=== PATIENT | female | born 1935 | race Caucasian/White ===

== ENCOUNTER → 2018-02-05 09:59 | Outpatient (CLI) | payer MEDICARE, SELFPAY ==
--- NOTE | 2018-02-05 10:05 | BI_ITS ---
MAMMOGRAPHY - BILATERAL SCREENING REASON FOR EXAM: Female, 82 years old. Routine annual screening examination. PERTINENT HISTORY: Non-contributory. Remote left excisional breast biopsy. TECHNIQUE: Digital bilateral breast josé miguel (3D mammographic acquisition) in the CC and MLO projections. 2-D mediolateral oblique (MLO) and craniocaudad (CC) views of both breasts were obtained. CAD: Full Field Digital Mammography with Computer Added Detection was performed. COMPARISON: Comparison is made with prior study dated November 12, 2016 and November 06, 2015. FINDINGS: Breast Composition: There are scattered areas of fibroglandular density. There are no dominant masses or suspicious calcifications. No other significant abnormalities are identified. There has been no significant change since the prior study. BI/SCREENING MAMM (CAD), BILAT IMPRESSION: Stable bilateral screening mammogram. Yearly follow-up mammogram recommended. (A) ASSESSMENT CATEGORY: BIRADS Category 1: Negative. A letter regarding these results will be sent to the patient by the facility within 30 days. Approximately 10% of breast cancers are not detected by mammography. A normal mammogram should not delay biopsy of a clinically suspicious abnormality. [id number] Electronically Signed: Az Izaguirre MD at 9:35 EST Tel [phone], Service support ,
--- OUTSIDE RECORDS SUMMARY | 2018-04-01 19:41 | XMS RPT_ITS ---
:1935 Author Organization [facility] Care Team Providers Name Role Phone Star Pressley Attending Unavailable Star Pressley Referring Unavailable Star Pressley Primary Care Unavailable Star Pressley Attending Unavailable Star Pressley Attending Unavailable PROBLEMS PROBLEMS DATE TYPE CONDITION / ATTENDING STATUS SOURCE CODE 05/06/2017 Admitting Unknown / Star Pressley Active [facility] UNK(Unknown) [facility] Repository PROCEDURES PROCEDURES No Procedure Records FoundRESULTS RESULTS SCREENING MAMM (CAD), Observed: 02/05/2018 Status: F Source: [facility] BILAT 10:05 AM [facility] REPOSITORY [facility] Imaging Services [address] [place] [address] SCREENING MAMM (CAD), BILAT MR#: [id number] Acct: [id number] Name: BRITTANY MIDDLETON Rep #: [id number] : 1935 F 82 From: Az Izaguirre MD PCP: Star Pressley MD Status: REG CLI Study: SCREENING MAMM (CAD), BILAT Date of Exam: 02/05/18 Exam# [id number] Ordering Dr: tSar Pressley MD MAMMOGRAPHY - BILATERAL SCREENING REASON FOR EXAM: Female, 82 years old. Routine annual screening examination. PERTINENT HISTORY: Non-contributory. Remote left excisional breast biopsy. TECHNIQUE: Digital bilateral breast josé miguel (3D mammographic acquisition) in the CC and MLO projections. 2-D mediolateral oblique (MLO) and craniocaudad (CC) views of both breasts were obtained. CAD: Full Field Digital Mammography with Computer Added Detection was performed. COMPARISON: Comparison is made with prior study dated November 12, 2016 and November 06, 2015. FINDINGS: Breast Composition: There are scattered areas of fibroglandular density. There are no dominant masses or suspicious calcifications. No other significant abnormalities are identified. There has been no significant change since the prior study. BI/SCREENING MAMM (CAD), BILAT IMPRESSION: Stable bilateral screening mammogram. Yearly follow-up mammogram recommended. (A) ASSESSMENT CATEGORY: BIRADS Category 1: Negative. A letter regarding these results will be sent to the patient by the facility within 30 days. Approximately 10% of breast cancers are not detected by mammography. A normal mammogram should not delay biopsy of a clinically suspicious abnormality. [id number] Electronically Signed: Az Izaguirre MD at 9:35 EST Tel [phone], Service support , CC: Star Pressley MD Automatic Pattern Edger: Signed CBC W/DIFF Collected: 11/09/2017 Status: F Source: [facility] 9:45 AM [facility] REPOSITORY TYPE CODE TESTS RESULT OUT OF RANGE REFERENCE UNITS LAB L200.47968 4.5-11.0 K/CU MM WBC Normal 6.0 LAB L200.36483 3.90-5.30 M/CU MM RBC Normal 4.96 LAB L200.22499 11.5-15.5 G/DL HGB Normal 14.6 LAB L200.49207 35.0-47.0 % HCT Normal 44.3 LAB L200.00073 80.0-99.0 fl MCV Normal 89.3 LAB L200.17704 32.0-36.0 GM/DL MCHC Normal 33.0 LAB L200.90001 11-14.5 RDW Normal 13.7 LAB L200.41052 9.4-12.4 MPV Normal 10.5 LAB L200.13477 150-450 K/CU MM PLT Normal 176 LAB L200.15395 45-75 % NEUTROPHILS Normal % 53.3 LAB L200.50344 Less than 2 % IMMATURE Normal GRAN % 0.2 LAB L200.51783 20-40 % LYMPH % Normal 34.6 LAB L200.26566 2-10 % MONOCYTE % Normal 8.9 LAB L200.48372 0-5 % EOSINOPHIL Normal % 2.5 LAB L200.41402 0-2 % BASOPHIL % Normal 0.5 LAB L200.97393 2.0-8.3 K/CU MM NEUTROPHIL Normal ABS 3.20 LAB L200.19591 Less than 2 K/CU MM IMMATR GRAN Normal ABS 0.00 LAB L200.51518 0.9-4.4 K/CU MM LYMPH ABS Normal 2.10 LAB L200.37050 0.1-1.1 K/CU MM MONO ABS Normal 0.50 LAB L200.22289 0-0.5 K/CU MM EOS ABS Normal 0.20 LAB L200.97443 0-0.2 K/CU MM BASO ABS Normal 0.00 LAB L200.59622 Less than 1 % NRBC Normal 0.0 Performed By: #### L200.15430 #### [facility] [address]# [phone] [facility] Collected: 11/09/2017 Status: F Source: [facility] 9:45 AM [facility] REPOSITORY TYPE CODE TESTS RESULT OUT OF RANGE REFERENCE UNITS LAB L500.84094 136-145 MMOL/L Normal NA 141 LAB L500.46380 3.5-5.1 MMOL/L Normal K 4.3 LAB L500.95725 98-107 MMOL/L Normal CL 104 LAB L500.52184 21-32 MMOL/L Normal CO2 27 LAB L500.07972 5-16 MMOL/L Normal AGAP 10 LAB L500.88919 70-100 MG/DL Normal GLU 90 Result Comment: 70-100- Normal Fasting; 100-125 Impaired Fasting; greater than 126 on more than one result- Diabetes. ADA guidelines. Results may be falsely elevated after the administration of Sulfapyridine. Results may be falsely depressed after the administration of Sulfasalazine. LAB L500.27769 7-26 MG/DL Normal BUN 16 LAB L500.68366 0.510-0.950 MG/DL Normal CREAT 0.692 Result Comment: Patients receiving either N-Acetylcysteine (NAC) or Metamizole prior to venipuncture, may have falsely depressed results. LAB L500.43245 15-24 Normal BUN/CREA 23 LAB L500.46228 6.0-8.5 GM/DL Normal TP 7.2 LAB L500.64782 3.2-5.0 GM/DL Normal ALBUMIN 3.8 LAB L500.43006 2.2-4.2 GM/DL Normal GLOBULIN 3.4 LAB L500.85753 0.8-2.0 Normal A/G RATIO 1.1 LAB L500.26961 8.5-10.1 MG/DL Normal CALCIUM TOTAL 9.4 LAB L500.50439 0.2-1.0 MG/DL Normal BILI TOTAL 0.8 LAB L500.69042 8-34 U/L Normal SGOT (AST) 21 Result Comment: RESULTS MAY BE FALSELY DEPRESSED AFTER THE ADMINISTRATION OF SULFASALAZINE AND/OR SULFAPYRIDINE. LAB L500.14463 13-61 IU/L Normal SGPT (ALT) 19 Result Comment: RESULTS MAY BE FALSELY DEPRESSED AFTER THE ADMINISTRATION OF SULFASALAZINE AND/OR SULFAPYRIDINE. LAB L500.75377 45-117 U/L Normal ALK PHOS 64 Performed By: #### L500.03998, L500.16220, L500.54800 #### [facility] [address] [place] [address] GFR EST Collected: 11/09/2017 Status: F Source: [facility] 9:45 AM [facility] REPOSITORY TYPE CODE TESTS RESULT OUT OF RANGE REFERENCE UNITS LAB L500.39860 ML/MIN Normal IF non-AFR Greater than AMER 60 LAB L500.66315 ML/MIN Normal IF Greater than AMER 60 Performed By: #### L500.55100, L500.68330, L500.00910 #### [facility] [address] [place], [place] [id number] LIPID Collected: 11/09/2017 Status: F Source: [facility] 9:45 AM [facility] REPOSITORY TYPE CODE TESTS RESULT OUT OF RANGE REFERENCE UNITS LAB L500.09231 30-149 MG/DL Normal TRIG 143 Result Comment: Patients receiving either N-Acetylcysteine (NAC) or Metamizole prior to venipuncture, may have falsely depressed results. LAB L500.22851 0-199 MG/DL High CHOL 279 LAB L500.66479 GREATER [place] 40 MG/DL Normal HDL DIRECT 47 Result Comment: Patients receiving Metamizole prior to venipuncture, may have falsely depressed results. LAB L500.40717 0-129 MG/DL High LDL 204 Result Comment: ___CHOLESTEROL/HDL RATIO RISK___ CHD RISK = Total CHOL LDL HDL (CHOL/HDL) Recommended <200 <130 >35 <3.4 Borderline 200-239 130-159 3.4-4.99 High >240 >160 >5.0 Performed By: #### L500.44446, L500.53247, L500.90711 #### [facility] [place] [address] UA COMPLETE Collected: 11/09/2017 Status: F Source: [facility] 9:45 AM [facility] REPOSITORY TYPE CODE TESTS RESULT OUT OF REFERENCE UNITS RANGE LAB L600.81819 UA COLOR Normal Yellow LAB L600.67721 CLEAR UA Normal APPEARANCE Clear LAB L600.58265 1.005-1.030 UA SPEC Normal GRAV 1.014 LAB L600.32204 UA PH Normal 5.0 LAB L600.38456 UA GLUCOSE Normal NEG LAB L600.98964 UA KETONE Normal NEGATIVE LAB L600.65319 UA Normal BILIRUBIN NEGATIVE LAB L600.30894 UA Normal UROBILINOGEN NEG LAB L600.61717 NEGATIVE UA PROTEIN Normal NEGATIVE LAB L600.20498 NEGATIVE UA BLOOD Normal SMALL LAB L600.43352 NEGATIVE UA NITRITE Normal NEGATIVE LAB L600.87109 NEGATIVE UA LK Normal ESTERASE 25 LAB L600.40909 0-5 WBC/HPF UA WBC High 9 LAB L600.87748 0-3 RBC/HPF UA RBC Normal 3 LAB L600.73468 0-5 EPI/HPF SQUAMOUS Normal EPIS 1 LAB L600.22516 NONE /HPF UA BACTERIA Normal TRACE LAB L600.17532 MUCUS Normal TRACE LAB L600.28742 HPF WBC CLUMPS Normal RARE Performed By: #### L600.46563 #### [facility] [address] [place] [address] LIVER Collected: 05/06/2017 Status: F Source: [facility] 9:45 AM [facility] TYPE CODE TESTS RESULT OUT OF RANGE REFERENCE UNITS LAB L500.92467 6.0-8.5 GM/DL TP Normal 7.3 LAB L500.60033 3.2-5.0 GM/DL Normal ALBUMIN 3.8 LAB L500.16930 2.2-4.2 GM/DL Normal GLOBULIN 3.5 LAB L500.52060 0.8-2.0 Normal A/G RATIO 1.1 LAB L500.10568 0.2-1.0 MG/DL Normal BILI TOTAL 0.5 LAB L500.41123 0.00-0.20 MG/DL Normal BILI DIRECT 0.16 LAB L500.16347 8-34 U/L Normal SGOT (AST) 21 Result Comment: RESULTS MAY BE FALSELY DEPRESSED AFTER THE ADMINISTRATION OF SULFASALAZINE AND/OR SULFAPYRIDINE. LAB L500.66414 13-61 IU/L Normal SGPT (ALT) 19 Result Comment: RESULTS MAY BE FALSELY DEPRESSED AFTER THE ADMINISTRATION OF SULFASALAZINE AND/OR SULFAPYRIDINE. LAB L500.61832 45-117 U/L Normal ALK PHOS 72 Performed By: #### L500.44528, L500.16511 #### [facility] [address] [place] [address] LIPID Collected: 05/06/2017 Status: F Source: [facility] 9:45 AM [facility] REPOSITORY TYPE CODE TESTS RESULT OUT OF RANGE REFERENCE UNITS LAB L500.93484 30-149 MG/DL Normal TRIG 83 Result Comment: Patients receiving either N-Acetylcysteine (NAC) or Metamizole prior to venipuncture, may have falsely depressed results. LAB L500.43732 0-199 MG/DL High CHOL 240 LAB L500.54201 GREATER [place] 40 MG/DL Normal HDL DIRECT 64 Result Comment: Patients receiving Metamizole prior to venipuncture, may have falsely depressed results. LAB L500.12722 0-129 MG/DL High LDL 160 Result Comment: ___CHOLESTEROL/HDL RATIO RISK___ CHD RISK = Total CHOL LDL HDL (CHOL/HDL) Recommended <200 <130 >35 <3.4 Borderline 200-239 130-159 3.4-4.99 High >240 >160 >5.0 Performed By: #### L500.73870, L500.11489 #### [facility] [address]# [phone] ALLERGIES ALLERGIES No Allergies Records FoundENCOUNTERS ENCOUNTERS ADMIT/DISCHARGE ACCOUNT ADMITTING ENCOUNTER LOCATION SOURCE NUMBER CLASS 02/05/2018 [id number] Ambulatory [place] [facility] ing:OPBI Repository 11/09/2017 [id number] [facility] g:PRABHAKAR Repository 05/06/2017 [id number] [facility] g:EstefaniMASOlman Repository PAYERS PAYERS ENCOUNTER GUARANTOR PAYER SUBSCRIBER SOURCE 02/05/2018 RISHABH Larson Primary BRITTANY Hankins [id number] BEAR Insurance:MEDICARE YODERDOB: [facility] [address]Apple PART A BPolicy [id number] Number: Repository [id number]: [phone] [id number] [phone] () Date:2017-12-27 02/05/2018 Secondary NOT GIVENUNK [place] Insurance:SELF PAY [facility] Number: Effective Repository Date:2017-12-27 11/09/2017 BRITTANY Jackson [facility] [id number] BE[place] [facility] [place] [address] icy Number: Repository [place], [place] [id number]: (330) Date:2002-03-08P O [phone] () [address] CODE [id number], [place] [address]HJ: 05/06/2017 BRITTANY Jackson Primary BRITTANY MARKHAM [facility] [id number] BEAR [place] [facility] [place] [address] icy Number: Repository [place], [place] [id number]: 330) Date:2002-03-08P O [phone] () [address] CODE [id number], [place] [address]MK:
== END ==
PROVIDERS: Family Provider Family Medicine; PCP Family Medicine; Referring Provider Family Medicine; Visit Provider Family Medicine
DX: Z12.31 Encounter for screening mammogram for malignant neoplasm of breast (principal)
CPT/HCPCS: 77063; 77067

== ENCOUNTER 2018-03-07 06:07 | Emergency (ER) | payer MEDICARE, SELFPAY ==
[2018-03-07 06:09] VITALS: BP 135/67; PULSE 98; RESP 18; TEMP 37.6; O2SAT 95; BMI 31.1
[2018-03-07 06:14] VITALS: BP 135/67; PULSE 95; RESP 16; TEMP 37.6; O2SAT 94
--- NOTE | 2018-03-07 06:25 | ED.DCSUM_ITS ---
- ER Visit Summary Date of Service: 03/07/18 Chief Complaint: [vomiting, diarrhea, bladder infection] History of Present Illness: The patient is a 82 F [that presents with several days of bladder infection symptoms where she had dysuria and frequency. She then began experiencing vomiting and diarrhea. She denies any abdominal pain or blood in her stool. No flank pain or fevers. She overall appears well and nontoxic. She has no other complaints.] Physical Examination: [General: The patient appears well and in no apparent distress. Patient is resting comfortably on cart. Skin: Warm, dry, no pallor noted. No rash. Head: Normocephalic, atraumatic Neck: Supple, nontender. Eye: PERRLA, EOMI ENT: Moist mucus membranes, pharynx within normal limits. Cardiovascular: Regular Rate and Rhythm, no gallups or rubs Respiratory: Patient is in no distress, no accessory muscle use, lungs are clear to auscultation, no wheezing, rales or rhonchi Musculoskeletal: normal ROM, no deformity, no tenderness, no swelling. 2+ radial and DP pulses symmetric. GI: No tenderness to palpation, no masses appreciated. No rebound, guarding, or rigidity noted. No CVA tenderness. Neurological: A&O, normal strength and sensation. Psychiatric: Cooperative] Test Results: [] Emergency Department Course and Treatment: [Patient was given IV fluids and Zofran. Blood work showed platelets of 134. Sodium 133. Potassium 3.2. Chloride 94. Urinalysis consistent with infection with nitrites and greater than 100 white cells. Patient will be given a gram of IV ceftriaxone and I will prescribe her an outpatient course of Keflex. She will follow closely with her primary provider and return with any new or worsening symptoms. Her platelets have been less than 200 in the past. She denies any bruising or bleeding symptoms. I instructed her to have this rechecked by her primary provider. Patient and family verbalized understanding and are agreeable. Patient understands and is agreeable with this plan of care. Patient was discharged home with family in stable and improved condition.] Treatment Plan: [see above] Disposition: [discharge home, stable condition] Impression: [Vomiting and Diarrhea, Acute Cystitis, Thrombocytopenia] This note was generated with Instabug dictation software. It may contain incorrect words, spelling, and punctuation that were not noted in review of the chart prior to signing ED Disposition - Plan for ED Patient: Disposition: Home or Assisted Living Chief Complaint: Complaint Instructions: ED Nausea Vomiting, ED UTI Cystitis Female Prescriptions: Cephalexin [Keflex] 500 mg PO Q12 #14 cap Referrals: Star Pressley MD [Primary Care Provider] -
[2018-03-07] MEDS: Ondansetron 4 MG/2 ML Vial IV (06:35)
[2018-03-07 06:42] LABS: Absolute Lymphocyte Count 0.68 X10^3/ul (0.83-4.51); Absolute Neutrophil Count 6.9 X10^3/uL (2.0-7.7); Basophil# 0.01 X10^3/uL; Basophil% 0.1 % (0-1); Hemoglobin 13.6 g/dl (12.0-15.0); Lymphocyte # 0.68 X10^3/ul (4.0); Lymphocyte % 8.2 % (19-41); Mean Corpuscular Hgb 30.2 pg (27.0-32.0); Mean Corpuscular Volume 88.9 fL (81-99); Mean Platelet Vol. 10.2 fl (6.2-12.0); Monocyte# 0.65 X10^3/uL; Monocyte% 7.9 % (0-10); Neutrophil # 6.91 X10^3/uL (2.7-7.7); Neutrophil % 83.6 % (47-70); Platelet Count 134 K/mm3 (150-450); RBC Distribution Width CV 14.1 % (11.6-14.6); RBC Distribution Width SD 45.9 fl (35.1-43.9); White Blood Count 8.3 K/mm3 (4.4-11.0)
[2018-03-07 06:46] LABS: Anion Gap 12 (5-15); BUN 11 mg/dL (7-18); BUN/Creat Ratio 13.5 RATIO (10-20); Calcium,Total 8.6 mg/dL (8.5-10.1); Chloride 94 mmol/L (98-107); Creatinine, Serum 0.81 mg/dL (0.55-1.02); EST Glomerular Filtration Rate 72 mL/min (>60); Est Glom Filt Rate - Afr Amer 87 mL/min (>60); Estimated Creatinine Clearance 43.81 ml/min; Glucose 135 mg/dL (74-106); Potassium 3.2 mmol/L (3.5-5.1); Sodium Level 133 mmol/L (136-145)
[2018-03-07 06:46] LABS: Mucous, Urine 0 SEEN /hpf (<or=2+); Red Blood Cells-Urine 0 SEEN /hpf (0-5); Squamous Epithelial Cells - UA 0 SEEN /hpf (5-10)
[2018-03-07 06:47] LABS: POSITIVE COUNT NO; POSITIVE DIFFERENTIAL NO; POSITIVE MORPHOLOGY NO
[2018-03-07 06:52] LABS: Color, Urine Yellow (Yellow); Glucose, Dipstick Normal (Normal); Ketone-Dipstick Negative (Negative); Leukocyte Esterase-Dipstick 500 /ul (Negative); Nitrite-Dipstick Positive (Negative); Occult Blood-Urine 150 /ul (Negative); Protein-Dipstick 100 mg/dl (Negative); Urine Bilirubin Dipstick Negative (Negative); Urine Clarity Cloudy (Clear); Urine Urobilinogen Normal (Normal)
[2018-03-07 06:57] LABS: Bacteria 2+ /hpf (None Seen); White Blood Cells >100 SEEN /hpf (0-5)
[2018-03-07 07:23] VITALS: BP 113/59; PULSE 85; RESP 18; TEMP 37.6; O2SAT 94
[2018-03-07] MEDS: Ceftriaxone 1 GM/50 ML BAG IV (07:43)
[2018-03-07 08:29] VITALS: BP 111/60; PULSE 102; RESP 19; TEMP 36.8; O2SAT 95; O2SAT 98
== END 2018-03-07 08:37 | disposition home or self-care (01) ==
PROVIDERS: Emergency Provider Emergency Medicine; Family Provider Family Medicine; PCP Family Medicine
DX: R11.10 Vomiting, unspecified (principal); R19.7 Diarrhea, unspecified; N30.00 Acute cystitis without hematuria; D69.6 Thrombocytopenia, unspecified
CPT/HCPCS: 80048; 81001; 85025; 96361; 96365; 96374; 99285; J7030; J7040; A4216; J2405

== ENCOUNTER → 2018-06-21 14:36 | Outpatient (CLI) | payer MEDICARE, SELFPAY ==
--- NOTE | 2018-06-21 14:41 | VDLE_ITS ---
Reason For Study: edema RIGHT LEFT CFV is compressible, spontaneous, phasic, GSV is normal. competent and demonstrates normal CFV is compressible, spontaneous, phasic, augmentation. competent, and demonstrates normal Procedure augmentation. Exam performed in department. FV is compressible, spontaneous, phasic, The exam was diagnostic. competent and demonstrates normal A preliminary report was called and/or faxed augmentation. to Jovany LIM. POP V is compressible, spontaneous, phasic, competent and demonstrates normal augmentation. T/P Trunk is compressible. PTV is compressible. LT PerV is compressible. Interpretation Summary Deep veins of the left lower extremity are patent and compressible segmentally. There is no evidence of left lower extremity deep vein thrombosis. Valvular competence appears intact within the proximal deep venous system on the left . The left greater saphenous vein appears patent and compressible segmentally. Ordering Physician: Star Pressley Performed By: Derek Rios RVT
== END ==
PROVIDERS: Family Provider Family Medicine; PCP Family Medicine; Referring Provider Family Medicine; Visit Provider Family Medicine
DX: R60.0 Localized edema (principal)
CPT/HCPCS: 93971

== ENCOUNTER 2018-06-28 09:43 | Emergency (ER) | payer MEDICARE, SELFPAY ==
[2018-06-28 09:44] VITALS: BP 151/80; PULSE 78; RESP 16; TEMP 36.6; O2SAT 98; BMI 27.8
--- NOTE | 2018-06-28 10:04 | CT_ITS ---
STUDY: CT ABDOMEN AND PELVIS WITH CONTRAST REASON FOR EXAM: Female, 83 years old. Lower abdominal pain. Back pain. RADIATION DOSAGE (If Supplied By Facility): CTDIvol = ( 15.3 ) mGy, DLP = ( 827.59 ) mGycm TECHNIQUE: Transaxial images were obtained from the dome of the diaphragm to the symphysis pubis with oral contrast. 100 IV/Oral Isovue 300 was administered. Sagittal and coronal images were reconstructed. Individualized dose optimization techniques were used for this CT. COMPARISON: No images available. FINDINGS: Lung bases: Dependent changes. Heart: Valve calcifications. Mild coronary artery disease. Liver: Mild hepatic steatosis. Left hepatic lobe lesion too small to characterize measuring 5 mm. No additional hepatic lesions identified. Gallbladder/biliary ducts: Cholecystectomy with trace intrahepatic biliary ductal dilatation. Pancreas: Unremarkable. Spleen: Unremarkable. Adrenal glands: Unremarkable. Kidneys/ureters/bladder: Bilateral symmetric renal parenchymal enhancement with right-sided hepatic cysts. Nondilated ureters. Normal urinary bladder. Uterus/adnexa: Calcified fibroid uterus. Physiologic appearing adnexal regions. Large bowel/small bowel: Moderate constipation. No acute small bowel or large bowel process. Appendix: Unremarkable (axial image 67 series 2). Gastroesophageal junction/stomach: Unremarkable. Retroperitoneum/lymph nodes: No intra-abdominal free air. No ascites. No pathologically enlarged lymph nodes. Vascular: Vascular calcifications without aneurysm. Osseous structures: Extensive multilevel degenerative changes. Age-indeterminate L1 compression deformity without retropulsion. Multilevel intervertebral disc disease with varying degrees of central canal narrowing. No dislocation. Scoliosis. Subcutaneous/soft tissues: Fat-containing uncomplicated umbilical hernia. Diffuse muscular atrophy at the hips (axial image 85 series 2). Mild paraspinal muscle atrophy. CT/Abdomen/Pelvis WITH Contrast IMPRESSION: No acute intraabdominal/pelvic findings Moderate constipation Age-indeterminate L1 compression deformity without retropulsion and additional extensive multilevel degenerative changes (follow-up nonemergent MRI can be obtained as clinical warranted) Hepatic lobe 5 mm lesion too small to characterize (follow-up nonemergent ultrasound/MRI as clinically warranted) Electronically Signed: Cruz Mendoza DO at 12:10 EDT Tel , Service support ,
--- NOTE | 2018-06-28 10:05 | ED.VISSUMM ---
- ER Visit Summary Date of Service: 06/28/18 Chief Complaint: Back and abdominal pain History of Present Illness: The patient is a 83 F who presents with back and abdominal pain that has been getting worse over the past 3 days. Patient states the pain started in her back and has now radiated around to her lower abdomen. Patient describes the pain as sharp. Patient states the pain in her back is worse with walking and better when she lays flat. Patient describes the pain as sharp. Patient denies any nausea or vomiting. Patient denies any diarrhea, melena, or hematochezia. Patient denies any urinary complaints. Physical Examination: Vital signs are stable. Patient is afebrile. Patient is in no acute distress. Oral mucosa is pink and moist. Neck is supple. Trachea is midline. There is no JVD noted. Heart was regular rate and rhythm. Lungs are clear and equal bilateral. Abdomen is soft. Bowel sounds are normal. There is lower tenderness. There is no rebound or guarding noted. Skin is warm dry. Cranial nerves II through XII are intact. There are no focal motor or sensory deficits noted. The remaining physical exam is within normal limits. Test Results: CBC, comprehensive metabolic profile, and urinalysis were obtained and were all normal. CT scan of the abdomen and pelvis was obtained. There is no acute intra-abdominal process. There is moderate constipation. Emergency Department Course and Treatment: Patient was given morphine and Zofran here. Patient was feeling better. Patient was given a soapsuds enema. Patient had minimal relief with this. Patient was given a prescription for Bentyl. Patient was instructed to eat a high-fiber diet. Patient was instructed to follow-up with her primary care physician in 5-7 days. Patient and family understood and were agreeable with the plan. All questions were answered. Disposition: Discharge home Impression: Lower abdominal pain This note was generated with Teamie dictation software. It may contain incorrect words, spelling, and punctuation that were not noted in review of the chart prior to signing ED Disposition - Plan for ED Patient: Disposition: Home or Assisted Living Diagnosis: Abdominal pain Instructions: ED Abdominal Pain Unkn Cause Prescriptions: Dicyclomine HCl [Bentyl] 20 mg PO TIDAC #20 cap Referrals: Star Pressley MD [Primary Care Provider] - 5-7 Days
[2018-06-28] MEDS: Morphine 4 MG/ML Syringe IV (10:24)
[2018-06-28] MEDS: Ondansetron 4 MG/2 ML Vial IV (10:24)
[2018-06-28 10:26] LABS: Bacteria 0 SEEN /hpf (None Seen); Mucous, Urine 0 SEEN /hpf (<or=2+); Red Blood Cells-Urine 0 SEEN /hpf (0-5); White Blood Cells 0 SEEN /hpf (0-5)
[2018-06-28 10:27] LABS: Color, Urine Yellow (Yellow); Glucose, Dipstick Normal (Normal); Ketone-Dipstick Negative (Negative); Leukocyte Esterase-Dipstick Negative /ul (Negative); Nitrite-Dipstick Negative (Negative); Occult Blood-Urine Negative /ul (Negative); Protein-Dipstick Negative (Negative); Urine Bilirubin Dipstick Negative (Negative); Urine Clarity Sl. Cloudy (Clear); Urine Urobilinogen Normal (Normal)
[2018-06-28 10:33] LABS: Squamous Epithelial Cells - UA 0-5 SEEN /hpf (5-10)
[2018-06-28 10:34] LABS: Absolute Neutrophil Count 3.3 X10^3/uL (2.0-7.7); Basophil# 0.03 X10^3/uL; Basophil% 0.6 % (0-1); Eosinophil# 0.06 X10^3/uL; Eosinophils% 1.1 % (0-5); Hemoglobin 13.7 g/dl (12.0-15.0); Lymphocyte % 29.5 % (19-41); Mean Corp Hgb Conc 32.6 g/gl (32-36); Mean Corpuscular Hgb 29.3 pg (27.0-32.0); Mean Corpuscular Volume 89.7 fL (81-99); Mean Platelet Vol. 9.1 fl (6.2-12.0); Monocyte# 0.41 X10^3/uL; Monocyte% 7.6 % (0-10); Neutrophil # 3.32 X10^3/uL (2.7-7.7); Platelet Count 197 K/mm3 (150-450); RBC Distribution Width CV 14.8 % (11.6-14.6); RBC Distribution Width SD 48.5 fl (35.1-43.9); Red Blood Count 4.68 M/mm3 (4.2-5.4); White Blood Count 5.4 K/mm3 (4.4-11.0)
[2018-06-28 10:35] LABS: POSITIVE COUNT NO; POSITIVE DIFFERENTIAL NO; POSITIVE MORPHOLOGY NO
[2018-06-28 10:48] LABS: AST(SGOT) 20 U/L (15-37); Alanine Aminotransfer ALT/SGPT 18 U/L (13-56); Albumin, Serum 3.8 g/dL (3.2-5.0); Alkaline Phosphatase 74 U/L (45-117); Anion Gap 2 (5-15); BUN 16 mg/dL (7-18); Chloride 105 mmol/L (98-107); EST Glomerular Filtration Rate 86 mL/min (>60); Est Glom Filt Rate - Afr Amer 104 mL/min (>60); Glucose 82 mg/dL (74-106); Lipase 87 U/L (73-393); Potassium 3.6 mmol/L (3.5-5.1); Protein, Total 7.8 g/dL (6.4-8.2); Sodium Level 139 mmol/L (136-145)
[2018-06-28 14:40] VITALS: PULSE 80; RESP 16; O2SAT 98
== END 2018-06-28 14:41 | disposition home or self-care (01) ==
PROVIDERS: Emergency Provider Emergency Medicine; Family Provider Family Medicine; PCP Family Medicine
DX: R10.31 Right lower quadrant pain (principal); R10.32 Left lower quadrant pain; K59.00 Constipation, unspecified; Z90.49 Acquired absence of other specified parts of digestive tract
CPT/HCPCS: 74177; 80053; 81001; 83690; 85025; 96374; 96375; 99285; Q9967; A4216; J2405

== ENCOUNTER → 2018-07-21 | Outpatient (CLI) | payer MEDICARE, SELFPAY ==
[2018-06-28 09:44] VITALS: BMI 27.8
--- NOTE | 2018-07-21 09:38 | US_ITS ---
STUDY: ABDOMINAL ULTRASOUND - RIGHT UPPER QUADRANT REASON FOR VISIT: Female, 83 years old. Follow-up from a recent CT scan of the abdomen and pelvis dated June 28, 2018. TECHNIQUE: Ultrasound evaluation of the right upper quadrant was performed with real-time and static raya-scale imaging. TECHNICAL QUALITY: Adequate. COMPARISON: Comparison is made with prior CT scan and pelvis dated June 28, 2018. FINDINGS: Liver: The liver measures 11.8 cm. There is normal echogenicity of the liver. The bile ducts are within normal limits. There is hepatic color flow. The direction of portal flow is hepatopetal. There is a 7 mm x 8 mm x 6 mm cyst in the left lobe of the liver. Gallbladder: The patient is status post cholecystectomy. Common Bile Duct (C.B.D.): The common bile duct measures 7.2 mm. Pancreas: Normal size of the head, body and tail of the pancreas. There is normal echogenicity of the pancreas. There is no demonstrated pancreatic mass or cyst. Right Kidney: Normal size of the right kidney. The right kidney measures 9.6 cm x 5.4 cm x 4.8 cm. Normal renal cortex. The right cortex measures 1.3 cm. 2 cysts are seen in the kidney. The larger measures 1.6 cm x 1.2 cm x 1.4 cm. There is no right hydronephrosis. US/Liver IMPRESSION: Subcentimeters cyst in the left lobe of the liver. Right renal cysts. Electronically Signed: Az Izaguirre, at 15:44 EDT , Service support ,
== END | disposition home or self-care (01) ==
LOC: US 09:36
PROVIDERS: Family Provider Family Medicine; PCP Family Medicine; Referring Provider Family Medicine; Visit Provider Family Medicine
DX: K76.9 Liver disease, unspecified (principal)
CPT/HCPCS: 76705